=== PATIENT | female | born 1980 | race Native Hawaiian/Other Pacific Islander ===

== ENCOUNTER 2016-11-22 04:44 | Emergency (ER) | payer OTHER ==
[2016-11-22 05:30] LABS: Hematocrit 36.9 % (30.3-42.9); Mean Corpuscular HGB Conc 33 % (30-34); Mean Corpuscular Volume 70 fl (79-97); Platelet Count 346 K/mm3 (140-440); Red Blood Count 5.27 M/mm3 (3.65-5.03); White Blood Count 9.1 K/mm3 (4.5-11.0)
[2016-11-22 05:32] LABS: Mean Corpuscular Hemoglobin 23 pg (28-32); Red Cell Distribution Width 25.8 % (13.2-15.2)
[2016-11-22 06:09] LABS: Basophils % (Manual) 0 % (0.0-1.8); Blastocytes % (Manual) 0 %; Eosinophils % (Manual) 0 % (0.0-4.3)
[2016-11-22 06:10] LABS: Anisocytosis 2+; Diff Status Complete; Hypochromasia 1+; Platelet Estimate Consistent w Auto
--- NOTE | 2016-11-22 07:12 | Emergency Department Report ---
ED HPI - General Chief complaint: Vaginal Bleeding Stated complaint: PREG 8WKS/VAG BLEEDING Time Seen by Provider: 11/22/16 07:07 Source: patient Mode of arrival: Ambulatory Limitations: No Limitations - History of Present Illness Initial comments: 36-year-old here with complaints of bilateral abdominal pain. Patient last menstrual period was in August. She believes she is . She's been having some vaginal bleeding. Denies nausea vomiting lightheadedness dizziness. No history of ectopic . Bleeding started yesterday as well as pain. MD Complaint: abdominal pain, vaginal bleeding -: Sudden Location: pelvis Radiation: none Severity: moderate Quality: cramping Consistency: intermittent Improves with: none Worsens with: none Associated symptoms: vaginal bleeding. denies: nausea/vomiting, vaginal discharge, abdominal pain, dysuria, headache, vision changes, malaise, dysparuenia - Related Data Previous Rx's Medication Instructions Recorded Last Taken Type Amoxicillin [Trimox CAP] 500 mg PO Q8H #30 capsule 12/25/12 Unknown Rx Hydrocodone Bit/Acetaminophen 1 each PO Q6H PRN #12 tablet 12/25/12 Unknown Rx [Lortab 5-500 Tablet] Neomy/Polymyx B/Hc (Otic) Soln 5 drops OT QID #1 bottle 12/25/12 Unknown Rx [Cortisporin (Otic) Soln] Allergies Allergy/AdvReac Type Severity Reaction Status Date / Time No Known Allergies Allergy Unverified 12/25/12 17:51 ED Review of Systems ROS: Stated complaint: PREG 8WKS/VAG BLEEDING Other details as noted in HPI Comment: All other systems reviewed and negative Constitutional: denies: chills, fever Eyes: denies: eye pain, eye discharge, vision change ENT: denies: ear pain, throat pain Respiratory: denies: cough, shortness of breath, wheezing Cardiovascular: denies: chest pain, palpitations Endocrine: no symptoms reported Gastrointestinal: denies: abdominal pain, nausea, diarrhea Genitourinary: denies: urgency, dysuria, discharge Musculoskeletal: denies: back pain, joint swelling, arthralgia Skin: denies: rash, lesions Neurological: denies: headache, weakness, paresthesias Psychiatric: denies: anxiety, depression Hematological/Lymphatic: denies: easy bleeding, easy bruising ED Past Medical Hx - Past Medical History Previous Medical History?: No - Surgical History Past Surgical History?: No Additional Surgical History: tubal ligation - Family History Family history: no significant - Social History Smoking Status: Never Smoker Substance Use Type: None - Medications Home Medications: Home Medications Medication Instructions Recorded Confirmed Last Taken Type Amoxicillin [Trimox CAP] 500 mg PO Q8H #30 capsule 12/25/12 Unknown Rx Hydrocodone Bit/Acetaminophen 1 each PO Q6H PRN #12 tablet 12/25/12 Unknown Rx [Lortab 5-500 Tablet] Neomy/Polymyx B/Hc (Otic) Soln 5 drops OT QID #1 bottle 12/25/12 Unknown Rx [Cortisporin (Otic) Soln] ED Physical Exam - General Limitations: No Limitations General appearance: alert, in no apparent distress, obese - Head Head exam: Present: atraumatic, normocephalic - Eye Eye exam: Present: normal appearance. Absent: scleral icterus, conjunctival injection - ENT ENT exam: Present: mucous membranes moist - Neck Neck exam: Present: normal inspection - Respiratory Respiratory exam: Present: normal lung sounds bilaterally. Absent: respiratory distress, wheezes, rales - Cardiovascular Cardiovascular Exam: Present: regular rate, normal rhythm, normal heart sounds. Absent: systolic murmur, diastolic murmur, rubs, gallop - GI/Abdominal GI/Abdominal exam: Present: soft, normal bowel sounds. Absent: distended, tenderness, rebound - Extremities Exam Extremities exam: Present: normal inspection - Back Exam Back exam: Present: normal inspection - Neurological Exam Neurological exam: Present: alert, oriented X3 - Psychiatric Psychiatric exam: Present: normal affect, normal mood - Skin Skin exam: Present: warm, dry, intact, normal color. Absent: rash ED Course Vital Signs 11/22/16 11/22/16 11/22/16 04:48 06:35 06:45 Temperature 98.9 F Pulse Rate 96 H 87 82 Respiratory 30 H 25 H Rate Blood Pressure 151/94 118/74 Blood Pressure [Right] O2 Sat by Pulse 97 95 Oximetry 11/22/16 11/22/16 11/22/16 07:00 08:39 09:31 Temperature Pulse Rate 87 84 82 Respiratory 25 H 18 19 Rate Blood Pressure 119/76 Blood Pressure 123/69 117/64 [Right] O2 Sat by Pulse 95 98 98 Oximetry 11/22/16 11:11 Temperature Pulse Rate 83 Respiratory 17 Rate Blood Pressure Blood Pressure 140/61 [Right] O2 Sat by Pulse 98 Oximetry ED Medical Decision Making - Lab Data Result diagrams: 11/22/16 05:12 Laboratory Results - last 24 hr 11/22/16 11/22/16 05:12 05:12 WBC 9.1 RBC 5.27 H Hgb 12.0 Hct 36.9 MCV 70 L MCH 23 L MCHC 33 RDW 25.8 H Plt Count 346 Add Manual Diff Complete Total Counted 100 Seg Neuts % (Manual) 63.0 Band Neutrophils % 0 Lymphocytes % (Manual) 32.0 Reactive Lymphs % (Man) 0 Monocytes % (Manual) 5.0 Eosinophils % (Manual) 0 Basophils % (Manual) 0 Metamyelocytes % 0 Myelocytes % 0 Promyelocytes % 0 Blast Cells % 0 Nucleated RBC % Not Reportable Seg Neutrophils # Man 5.7 Band Neutrophils # 0.0 Lymphocytes # (Manual) 2.9 Abs React Lymphs (Man) 0.0 Monocytes # (Manual) 0.5 Eosinophils # (Manual) 0.0 Basophils # (Manual) 0.0 Metamyelocytes # 0.0 Myelocytes # 0.0 Promyelocytes # 0.0 Blast Cells # 0.0 WBC Morphology Not Reportable Hypersegmented Neuts Not Reportable Hyposegmented Neuts Not Reportable Hypogranular Neuts Not Reportable Smudge Cells Not Reportable Toxic Granulation Not Reportable Toxic Vacuolation Not Reportable Dohle Bodies Not Reportable Pelger-Huet Anomaly Not Reportable Ladan Rods Not Reportable Platelet Estimate Consistent w auto Clumped Platelets Not Reportable Plt Clumps, EDTA Not Reportable Large Platelets Not Reportable Giant Platelets Not Reportable Platelet Satelliting Not Reportable Plt Morphology Comment Not Reportable RBC Morphology Not Reportable Dimorphic RBCs Not Reportable Polychromasia Not Reportable Hypochromasia 1+ Poikilocytosis Not Reportable Anisocytosis 2+ Microcytosis Not Reportable Macrocytosis Not Reportable Spherocytes Not Reportable Pappenheimer Bodies Not Reportable Sickle Cells Not Reportable Target Cells Not Reportable Tear Drop Cells Not Reportable Ovalocytes Not Reportable Helmet Cells Not Reportable [place] Bodies Not Reportable [place] Rings Not Reportable Rafa Cells Not Reportable Bite Cells Not Reportable Crenated Cell Not Reportable Elliptocytes Not Reportable Acanthocytes (Spur) Not Reportable Rouleaux Not Reportable Hemoglobin C Crystals Not Reportable Schistocytes Not Reportable Malaria parasites Not Reportable Harry Bodies Not Reportable Hem Pathologist Commnt No HCG, Quant 4563 H - Medical Decision Making 36-year-old here with vaginal bleeding and cramping. Patient has not had an ultrasound yet. Plan transvaginal ultrasound and plan to reassess. Beta hCG is 4563. Patient appears hemodynamically stable. Ultrasound shows a question will gestational sac in the lower uterine segment. Patient having active miscarriage likely. Ultrasound report with no obvious IUP but no obvious findings for ectopic or molar either. I discussed the case with the patient's OB office who recommended 48-hour repeat ultrasound and repeat Quant. On reassessment patient appears uncomfortable. Plan to treat with IV morphine and we'll observe her for at least 30 more minutes. On second assessment patient appears comfortable. She's passed several clots and has decreased bleeding now. Discussed plan follow-up in 48 hours for repeat ultrasound. Patient understands. Portions of this chart were dictated with dictation software. There may be dictation errors contained within this note. Critical care attestation.: If time is entered above; I have spent that time in minutes in the direct care of this critically ill patient, excluding procedure time. ED Disposition Clinical Impression: Threatened miscarriage Disposition: DC-01 TO HOME OR SELFCARE Is pt being admited?: No Condition: Stable Instructions: Threatened Miscarriage (ED) Additional Instructions: Please follow-up with your OB office on . He will need repeat blood work and a repeat ultrasound.
--- NOTE | 2016-11-22 07:56 | Ultrasound Report ---
FINAL REPORT EXAM: US OB \T\lt; = 14 WEEKS FETUS HISTORY: vaginal bleeding COMPARISONS: None. FINDINGS: Transabdominal 1st trimester pelvic ultrasound utilizing grayscale technique Anteverted uterus with unremarkable myometrium and heterogeneous thickening of the endometrium measuring up to 2.4 cm. A circumscribed cystic structure is present within the lower uterine segment with mean diameter 32 millimeters corresponding to potential estimated gestational age of 8 weeks 3 days and delivery date 07/01/2017. No embryo or yolk sac. The ovaries are not visualized. No significant free fluid in the pelvis. IMPRESSION: Abnormal ultrasound. A lower uterine segment cystic structure may represent a gestational sac with corresponding estimated gestational age of 8 weeks 3 days, however no embryo or yolk sac is identified and the more superior endometrium is heterogeneously thickened up to 24 millimeters. Differential diagnosis includes ectopic and molar . Gynecologic consultation and correlation with quantitative serum hCG is recommended. Nonvisualized ovaries. Dr. Rogel discussed findings with Dr Whitfield at [address] following the examination.
--- NOTE | 2016-11-22 07:57 | Ultrasound Report ---
FINAL REPORT EXAM: US OB TRANSVAGINAL HISTORY: vaginal bleeding COMPARISONS: None. FINDINGS: Transvaginal 1st trimester pelvic ultrasound utilizing grayscale technique Anteverted uterus with unremarkable myometrium and heterogeneous thickening of the endometrium measuring up to 2.4 cm. An irregular cystic structure is present within the lower uterine segment with mean diameter 32 millimeters corresponding to potential estimated gestational age of 8 weeks 3 days and delivery date 07/01/2017. No embryo or yolk sac. The ovaries are not visualized. No significant free fluid in the pelvis. IMPRESSION: Abnormal ultrasound. A lower uterine segment irregular cystic structure may represent a gestational sac with corresponding estimated gestational age of 8 weeks 3 days, however no embryo or yolk sac is identified and the more superior endometrium is heterogeneously thickened up to 24 millimeters. Differential diagnosis includes ectopic and molar . Gynecologic consultation and correlation with quantitative serum hCG is recommended. Nonvisualized ovaries. Dr. Rogel discussed findings with Dr Whitfield at [address] [employer] following the examination.
[2016-11-22] MEDS ORDERED: TORADOL IM ONE (08:31)
[2016-11-22 08:51] LABS: Bilirubin,Urine NEG (Negative); Blood,Urine LG (Negative); Ketones,Urine NEG (Negative); Leukocyte Esterase,Urine TR (Negative); Mucus,Urine 1+ /HPF; Nitrite,Urine NEG (Negative); Urobilinogen,Urine < 2.0 mg/dL (<2.0)
[2016-11-22 09:07] LABS: RBC,Urine > 182.0 /HPF (0.0-6.0)
[2016-11-22] MEDS ORDERED: MORPHINE IM ONE (09:41)
[2016-11-22 11:14] VITALS: BP 140/61
== END 2016-11-22 12:10 | disposition home or self-care (01) ==
LOC: ED 04:44
DX: O20.0 Threatened abortion (principal); Z3A.08 8 weeks gestation of pregnancy
CPT/HCPCS: 36415; 76801; 76817; 81001; 84702; 85007; 85025; 86850; 86900; 86901; 96372; 99284; J1885; J2270